=== PATIENT | female | born 1965 | race Caucasian/White ===

== ENCOUNTER 2017-03-02 07:40 | Outpatient (CLI) | payer OTHER ==
--- NOTE | 2017-03-16 10:15 | PFT ---
PATIENT HISTORY: HEIGHT: 67 INCHES WEIGHT: 194 LBS SMOKER: NO HOW LONG: PACKS PER DAY PRODUCTIVE COUGH: LUNG DISEASE: SOB PHYSICIAN INTERPRETATION FINAL REPORT: The patient had difficulty taking deep breath before bronchodilator. He noted breathing better following bronchodilator. He demonstrated good effort and cooperation. FVC 3.09 (86%), FEV1 2.63 (96%), FEV1/FVC 0.85. The FEV1 and the FVC fall within the normal limits after bronchodilator therapy. The ratio; however, is not consistent with any obstructive airflow limitation. There is no scooping to the expiratory limb of the flow volume loops suggesting that we are not dealing with an obstructive process. The inspiratory limb of the flow volume loop is completely normal. There is dramatic improvement in the FVC (33%, 750 mL), and FEV1 (37%, 710 mL) following administration of bronchodilator. IMPRESSION: Overall, The spirometry is normal. There is a significant improvement following bronchodilator therapy. There is absolutely no hint of obstructive airflow limitation with the exception of a significant improvement following bronchodilator. This may be effort related. Meat Cooler: DINORA Neon Electrician: DINORA JESUS
== END 2017-03-02 07:41 | disposition home or self-care (01) ==
LOC: CP 07:40
PROVIDERS: ATTEND Family Medicine
DX: R06.02 Shortness of breath (principal)
CPT/HCPCS: 94060

== ENCOUNTER 2018-01-27 09:26 | Outpatient (CLI) | payer OTHER ==
[2018-01-27 10:31] LABS: Hemoglobin 14.1 g/dL (12.0-16.0); Mean Corpuscular HGB CONC 33.4 g/dL (32.0-36.0); Mean Corpuscular Hemoglobin 30.5 pg (27.0-31.0); Mean Corpuscular Volume 91.2 fL (78.0-98.0); Mean Platelet Volume 8.4 fL (7.4-10.4); Platelet Count 285 thou/uL (130-400); RBC Distribution Width 11.9 % (11.5-14.5); Red Blood Cell (RBC) Count 4.64 mill/uL (4.20-5.40); White Blood Cell (WBC) Count 6.2 thou/uL (4.8-10.8)
== END 2018-01-27 09:27 | disposition home or self-care (01) ==
LOC: LABBT 09:26
PROVIDERS: ATTEND Obstetrics & Gynecology
DX: Z01.812 Encounter for preprocedural laboratory examination (principal); R10.2 Pelvic and perineal pain
CPT/HCPCS: 85027; 86850; 86900; 86901

== ENCOUNTER 2018-01-31 06:53 | Day surgery (SDC) | payer OTHER ==
[2018-01-27 09:44] VITALS: BMI 28.5
--- NOTE | 2018-01-27 14:11 | HP ---
DATE OF SURGERY: HISTORY OF PRESENT ILLNESS: Ms. Lawson is a 52-year-old white female with previous hysterectomy and sections and appendectomy with also a midurethral transvaginal sling that was done over 5 [address] Royal Urbina. She has been having what appeared to be mainly left lower quadrant pain associated with intercourse. She has been seen by Dr. Debbi Wilkerson of Urology and she was refe rred to me for evaluation of her dyspareunia. She was seen on 12/01/2017 and on exam, it felt her pa in was more in left lower quadrant, not associated with the transvaginal mesh tape. I did request he r operative report from Dr. Lu. It was performed on 01/2010. At that time, she has stress urin lc incontinence and symptomatic cystocele and rectocele. She underwent a transvaginal tape sling pr ocedure along with a cystocele and rectocele repair with A&P repair. She had intraoperative cystosco py during the TVT procedure which was normal. PAST MEDICAL HISTORY: Hypothyroidism and migraines. PAST SURGICAL HISTORY: Noted, partial thyroidectomy, appendectomy, cholecystectomy, hysterectomy, ce sarean section x2 and TVT procedure in 2009. ALLERGIES: CODEINE. CURRENT MEDICATIONS: Breo Ellipta 100 mcg/25 mcg powder for inhalation, Dexilant 30 mg daily for ELLY D, estradiol 0.1% vaginal cream 1 gram twice a week, estradiol tablet 1 mg daily, medroxyprogesterone 2.5 mg daily, vitamins, Phenergan 25 mg as needed for migraine headaches. She is on Topama x 50 mg tablet daily for migraine suppression, also takes Ventolin MDI for occasional asthma, wheezin g. FAMILY HISTORY: Diabetes in her mother and sister and hypothyroidism in her sister and aunt. SOCIAL HISTORY: Negative for current smoker, but has been a smoker in the past. No illicit drug use or excessive alcohol intake. PHYSICAL EXAMINATION: VITAL SIGNS: Her height is 5 feet 7 inches, 185 pounds, BMI 29, blood pressure 112/74, pulse 90, res pirations 18. HEENT: Within normal limits. CHEST: Clear to auscultation. HEART: Regular rate and rhythm. S1, S2 heart sounds, no murmurs, rubs or gallops. ABDOMEN: Soft, nontender, nondistended. No hepatosplenomegaly. There is some discomfort in left lo wer quadrant with palpation well above the symphysis pubis site. She has a Pfannenstiel sc ar and midline upper vertical scar from cholecystectomy, appendectomy. There were no palpable hernia s. PELVIC: Vulva had no lesions. There was no atrophy or mesh erosion appreciated. Bladder and urethr a, no urethral discharge or mass. No abnormal meatus and bladder nondistended. Vagina, there was no apparent tenderness on exam today. No recurrent cystocele, rectocele of importance noted. No abnor mal vaginal discharge or vesicles seen and no mesh erosion. Uterus is surgically absent. Adnexa and parametrial, no parametrial tenderness or mass and no adnexal tenderness or ovarian masses appreciat ed. ASSESSMENT: This is a 52-year-old white female with history of mid urethral sling procedure in 2009, having dyspareunia. Her also reports having an irritated spot to him approximately 5 inches internally in the vagina on the right side. The exam did not appreciate this today and her exam was more consistent with left lower quadrant pain. Review of the operative for notes, did not appear to have any unusual complications or issues with the sling placement. PLAN: Proceed with a diagnostic laparoscopy and adhesiolysis indicated is possibility cause for the left lower quadrant pain with dyspareunia. We will also perform a cystoscopy at that time to look at the bladder and the urethra due to the patient's sling history. We will also do an exam under anest hesia, the vagina and checked for any unusual fibrosis or areas that would be causing her the se symptoms during coitus. Then we would excise this area and oversew the mucosa if encountered. Ri sks and benefits of procedure discussed in detail. She is set for surgery preop and scheduled for .
[2018-01-31] MEDS ORDERED: Famotidine/PF 20 mg/2ml Vial ONE (07:12)
[2018-01-31] MEDS ORDERED: CeleCOXIB 100 MG CAP ONE (07:13)
[2018-01-31] MEDS ORDERED: CEFAZOLIN/Water 2 GM/20 ML SYRINGE ONE (07:14)
[2018-01-31] MEDS ORDERED: Gabapentin 300 MG CAP ONE (07:53)
[2018-01-31] MEDS ORDERED: Midazolam HCl 2 mg/2 ml Vial ONE (10:35)
[2018-01-31] MEDS ORDERED: Bupivacaine HCl 0.5%/Epinephrine 1:200,000/PF 30 ml Vial ONE (10:37)
[2018-01-31] MEDS ORDERED: Fentanyl 100 MCG/2 ML VIAL ONE ×2 (10:40)
[2018-01-31] MEDS ORDERED: Ondansetron HCl/PF 4 MG/2 ML Vial ONE (12:23)
[2018-01-31] MEDS ORDERED: PHENYLEPHRINE-NS 100 MCG/ML 10 ML SYRINGE ONE (12:23)
[2018-01-31] MEDS ORDERED: Lidocaine 1% PF 5 ML VIAL ONE (12:23)
[2018-01-31] MEDS ORDERED: Ketorolac Tromethamine 30 MG/ML VIAL ONE (12:23)
[2018-01-31] MEDS ORDERED: Glycopyrrolate 0.2 MG/ML 5 ML SYRINGE ONE (12:23)
[2018-01-31] MEDS ORDERED: PROPOFOL 200 MG/20 ML VIAL ONE (12:23)
[2018-01-31] MEDS ORDERED: Dexamethasone 20 MG/5 ML VIAL ONE (12:23)
--- NOTE | 2018-01-31 13:48 | OP ---
DATE OF PROCEDURE: 01/31/2018 PREOPERATIVE DIAGNOSES: 1. A 52-year-old white female, previous vaginal hysterectomy, BSO along with TVT and anterior and po sterior procedure in the past by Dr. Frias. Noted dyspareunia, mainly left lower quadrant pain. 2. Patient's partner with penile pain associated on the right side of patient's vaginal sidewall. POSTOPERATIVE DIAGNOSES: 1. Dyspareunia, left lower quadrant pain. 2. Pelvic adhesive disease. PROCEDURES PERFORMED: 1. Diagnostic laparoscopy with lysis of omental and small bowel adhesions. 2. Diagnostic cystoscopy. 3. Vaginal exam under anesthesia. SURGEON: Gabriela Matute M.D. ANESTHESIA: General endotracheal. ESTIMATED BLOOD LOSS: Minimal. PATHOLOGY: None. FINDINGS: 1. The patient was status post previous hysterectomy and BSO. 2. Omental and small bowel adhesions left lower quadrant pelvic sidewall, status post adhesiolysis. 3. Vaginal cuff line noted to be free of any adhesions on diagnostic scope inspection. 4. Cystoscopy showed normal bilateral ureteral efflux. There were no lesions or mesh noted in the t rigone down or body of the bladder. 5. Normal urethra with no evidence of mesh seen throughout its entirety with good UV angle closure n oted. 6. Exam of the vaginal vault both visibly with speculum and also under palpation showed no lesions o r mesh erosion or any dense scar tissue appreciated on examination. DISPOSITION: To the recovery room stable. DESCRIPTION OF OPERATIVE PROCEDURE: The patient previously received informed consent in regards to s urgery. She was taken back to the operating room where she received a general endotracheal anestheti c agent without complications. She was placed in dorsal lithotomy position with use of Elmer stirrup s and in and out catheterization of bladder had been performed. At this time, a sponge stick was los cassi in the vagina. Attention was then turned to the abdomen where perspective trocar sites were infi ltrated with 0.5% Marcaine with epinephrine. A 5 mm infraumbilical incision was made. Veress needle was entered into the peritoneal cavity. Patient pressure was noted to be less than 5 and the abdome n was insufflated to patient pressure of 15, approximately 4 liters of carbon dioxide gas. Veress ne edle was then removed and 5 mm trocar was then placed through the infraumbilical incision. The 5 mm diagnostic laparoscope was introduced through the trocar sleeve with the previously mentioned finding s. An additional suprapubic midline 5 mm trocars placed under laparoscopic guidance along with a lef t lower quadrant 5 mm trocar. My surgical garment fitter and OR nurse chef's assistant then grasped the omentum and small bowel with the atraumatic grasper through the midline suprapubic port and then I began to d issect the omental and small bowel adhesions from the left anterior abdominal wall, left pelvic side wall with EndoShears under direct visualization. The avascular planes were dissected sparing injury to any of the small bowel does this omentum and small bowel was taken down uneventfully. Intermitten t cautery was used for hemostasis as indicated. Once the adhesions had been released from the pelvic sidewall and anterior abdominal wall, photodocumentation again was obtained. Hemostasis was noted. Inspection of the vaginal vault with a sponge stick distending the vaginal cuff showed no evidence o f any adhesions over the cuff line. The laparoscope was then removed. Trocar sleeves were then removed after the excess carbon dioxide g as had been released from the abdomen. Trocar sites were closed with 4-0 Monocryl suture with Dermab ond. Attention was then turned to the vaginal portion of the case. The sponge stick was removed from the vagina. A speculum was placed in the vagina and the entirety of this vagina was inspected circumfere ntially all the way from the introitus to the vaginal cuff. There was no evidence of any lesions, no fibrotic tissue or any mesh erosions palpable. No mesh erosions were visualized. A gloved hand was then also utilized to examine the vaginal vault for any fibrotic tissue that would be causing discom fort to patient's sexual partner and no fibrotic tissue or mesh erosions or irritative findings were noted on digital examination of the vagina. Labia minora and majora were also free of any lesions. The 30 degree diagnostic cystoscope was then introduced through the urethra and the bladder was diste nded with saline. The bladder mucosa was without lesions. There was no evidence of any mesh erosion . Bilateral ureteral efflux was visualized of on each ureter and trigone of the bladder appeared nor mal. Inspection of the urethra on the way out showed no evidence of any mesh erosion or lesions seen . The procedure was then completed. The patient was awakened from anesthesia and transferred to the recovery room in stable condition.
== END 2018-01-31 14:15 | disposition home or self-care (01) ==
LOC: SDC 06:53
PROVIDERS: ATTEND Obstetrics & Gynecology
PROC: 0TJB8ZZ Inspection of Bladder, Via Natural or Artificial Opening Endoscopic (ICD-10-PCS; principal; 2018-01-31)
PROC: 0DN84ZZ Release Small Intestine, Percutaneous Endoscopic Approach (ICD-10-PCS; principal; 2018-01-31)
DX: N73.6 Female pelvic peritoneal adhesions (postinfective) (principal); N94.10 Unspecified dyspareunia; E89.0 Postprocedural hypothyroidism; G43.909 Migraine, unspecified, not intractable, without status migrainosus; K21.9 Gastro-esophageal reflux disease without esophagitis; Z87.891 Personal history of nicotine dependence; Z79.899 Other long term (current) drug therapy; Z88.5 Allergy status to narcotic agent; Z90.711 Acquired absence of uterus with remaining cervical stump
CPT/HCPCS: J0670; J1100; J1885; J2001; J2250; J2405; J2704; J3010; S0028

== ENCOUNTER 2018-09-03 17:05 | Emergency (ER) | payer OTHER ==
[~2018-09-03 17:05] MED LIST: ISOVUE-370 76%-LOCM 1 ML ONE
[2018-09-03 17:37] LABS: #Basophils 0.1 thou/uL (0.0-0.2); #Eosinphils 0.1 thou/uL (0.0-0.7); #Lymphocytes 2.3 thou/uL (1.20-3.40); #Monocytes 0.5 thou/uL (0.11-0.59); #Neutrophils 3.1 thou/uL (1.40-6.50); %Eosinophils 2.2 % (0.0-10.0); %Lymphocytes 37.8 % (21.0-51.0); %Monocytes 7.7 % (0.0-10.0); %Neutrophils 51.4 % (42.0-75.0); Hemoglobin 13.2 g/dL (12.0-16.0); Mean Corpuscular Hemoglobin 31.5 pg (27.0-31.0); Mean Corpuscular Volume 89.9 fL (78.0-98.0); Mean Platelet Volume 9.1 fL (7.4-10.4); Platelet Count 244 thou/uL (130-400); RBC Distribution Width 11.4 % (11.5-14.5)
[2018-09-03 17:58] LABS: ALT (SGPT) 17 U/L (8-55); AST (SGOT) 15 U/L (5-34); Albumin 4.2 g/dL (3.5-5.0); Alkaline Phosphatase 72 U/L (40-150); Anion Gap 12 mmol/L (10-20); BUN (Urea Nitrogen) 10 mg/dL (9.8-20.1); Bilirubin, Total 0.5 mg/dL (0.2-1.2); Calc. Creatinine Clearance 0 mL/min (70-130); Calcium 9.5 mg/dL (7.8-10.44); Carbon Dioxide 24 mmol/L (22-29); Chloride 110 mmol/L (98-107); Estimated GFR-MDRD 70; Globulin 2.7 g/dL (2.4-3.5); Glucose 83 mg/dL (70-105); Lipase 21 U/L (8-78); Potassium 3.8 mmol/L (3.5-5.1); Protein, Total 6.9 g/dL (6.0-8.3); Sodium 142 mmol/L (136-145)
[2018-09-03] MEDS ORDERED: Ondansetron PF 4 MG/2 ML Vial ONE (20:11)
[2018-09-03] MEDS ORDERED: Ketorolac Tromethamine 30 MG/ML VIAL ONE (20:11)
--- NOTE | 2018-09-03 20:12 | CT ---
CT of abdomen and pelvis: 09/03/2018 COMPARISON: None HISTORY: Abdominal pain TECHNIQUE: Axial CT imaging at 5 mm intervals from lung bases through pubic symphysis with IV contras t. Coronal reformatted imaging obtained. FINDINGS: The lack of oral contrast limits assessment of the bowel. The imaged lung bases are unremarkable. No free intraperitoneal air or fluid. Uterus and gallbladder appear surgically absent. Hypodensity of the hepatic parenchyma suggest steatosis. Splenic granulomata noted. Pancreas, adrenal glands, and kidneys unremarkable. Limited assessment of the bowel demonstrates no acute findings. The appendix is nonvisualized. No rig ht lower quadrant inflammatory change is seen. Vascular structures appear patent. No lymphadenopathy is seen within the abdomen or pelvis. Osseous s tructures demonstrate lower lumbar spine facet hypertrophy. No acute osseous abnormality. IMPRESSION: No acute findings.
[2018-09-03 20:25] LABS: Bilirubin Negative (Negative); Blood, Urine Negative (Negative); Clarity CLEAR (Clear); Glucose, Urine (Dipstick) Negative (Negative); Leukocyte Negative (Negative); Nitrite Negative (Negative); Protein, Urine (Dipstick) Negative (Neg-Trace); pH, Urine 6.5 (5.0-9.0)
[2018-09-03 20:27] LABS: Pregnancy Test - Urine (BHCG) Negative (Negative); Pregu Control Background? CLEAR/WHITE (CLR/WHITE); Pregu Control Bar Appear? YES (CONTROL BAR)
== END 2018-09-03 21:18 | disposition home or self-care (01) ==
LOC: ERS 17:05
DX: R10.11 Right upper quadrant pain (principal); G43.909 Migraine, unspecified, not intractable, without status migrainosus; E03.9 Hypothyroidism, unspecified; F41.9 Anxiety disorder, unspecified; Z79.899 Other long term (current) drug therapy
CPT/HCPCS: 36415; 74177; 80053; 81003; 81025; 83690; 85025; 87086; 96361; 96374; 96375; J1885; J2405; Q9966